=== PATIENT | male | born 1945 | race Native Hawaiian/Other Pacific Islander ===

== ENCOUNTER 2021-03-14 17:11 | Emergency (ER) | payer OTHER ==
[~2021-03-14] VITALS: Ht 30.5 cm; Wt 0.5 kg
[2021-03-14 17:39] LABS: PLATELET COUNT 113 K/uL (142-355)
[2021-03-14 17:46] LABS: PARTIAL THROMBOPLASTIN TIME 18.9 SECONDS (24.5-33.6)
[2021-03-14 18:10] LABS: POTASSIUM 4.2 mmol/L (3.6-5.2)
== END 2021-03-14 18:50 | disposition expired ==
LOC: ED 17:15
PROVIDERS: Hospitalist
PROC: 0T9B70Z Drainage of Bladder with Drainage Device, Via Natural or Artificial Opening (ICD-10-PCS; principal; 2021-03-14)
PROC: 5A12012 Performance of Cardiac Output, Single, Manual (ICD-10-PCS; 2021-03-14)
DX: I46.9 Cardiac arrest, cause unspecified (principal); I24.9 Acute ischemic heart disease, unspecified; E11.9 Type 2 diabetes mellitus without complications; R06.02 Shortness of breath
CPT/HCPCS: 51702; 80053; 82550; 82553; 82948; 84484; 85027; 85610; 85730; 92950; 96360; 96375; 99285; J0171; J1815; J2310; J3490; J7060